=== PATIENT | female | born 1945 | race Native Hawaiian/Other Pacific Islander ===

== ENCOUNTER 2016-08-23 06:28 | Emergency (ER) | payer OTHER ==
[~2016-08-23] VITALS: Ht 162.6 cm; Wt 79.4 kg
[~2016-08-23 06:28] MED LIST: GLIP5TAB65 PO; KRILL OIL300 MG OR; LEVO0.1T6 PO; METO50TA63 PO; PANT40TA PO; PLAVIX75 MG PO; RAMI2.5C2 PO; ROSU10TA PO
[2016-08-23 06:40] VITALS: TEMP 97.8
[2016-08-23 07:24] LABS: PLATELET COUNT 180 K/uL (152-353)
[2016-08-23 07:35] LABS: SODIUM 136 mmol/L (136-145)
[2016-08-23 07:52] LABS: PARTIAL THROMBOPLASTIN TIME 23.6 SECONDS (24.5-33.6)
[2016-08-23 07:56] VITALS: BP 141/84
== END 2016-08-23 07:57 | disposition home or self-care (01) ==
LOC: ED 06:28
DX: K29.60 Other gastritis without bleeding (principal); B96.81 Helicobacter pylori [H. pylori] as the cause of diseases classified elsewhere; E10.9 Type 1 diabetes mellitus without complications; R00.0 Tachycardia, unspecified
CPT/HCPCS: 36415; 80053; 82550; 83036; 84443; 84484; 85027; 85610; 85730; 86318; 93005; 99283

== ENCOUNTER 2017-05-11 11:19 | Outpatient (CLI) | payer OTHER | END 2017-05-11 20:26 | disposition home or self-care (01) | LOC: MAMMO 11:19 | DX: Z12.31 Encounter for screening mammogram for malignant neoplasm of breast (principal) ==

== ENCOUNTER 2017-12-24 08:47 | Outpatient (CLI) | payer OTHER | END 2017-12-24 22:07 | disposition home or self-care (01) | LOC: US 08:47 | DX: Z13.6 Encounter for screening for cardiovascular disorders (principal) ==

== ENCOUNTER 2018-01-28 10:04 | Outpatient (CLI) | payer OTHER | END 2018-01-28 19:22 | disposition home or self-care (01) | LOC: RAD 10:04 | DX: Z13.820 Encounter for screening for osteoporosis (principal); Z78.0 Asymptomatic menopausal state ==

== ENCOUNTER 2018-06-16 03:30 | Emergency (ER) | payer OTHER ==
[~2018-06-16] VITALS: Ht 162.6 cm; Wt 79.4 kg
[2018-06-16 03:57] LABS: PLATELET COUNT 224 K/uL (152-353)
[2018-06-16 04:24] LABS: POTASSIUM 4.3 mmol/L (3.6-5.2); SODIUM 140 mmol/L (136-145)
[2018-06-16 07:15] VITALS: BP 97/52; TEMP 98
== END 2018-06-16 07:19 | disposition home or self-care (01) ==
LOC: ED 03:30
PROVIDERS: Internal Medicine
DX: I48.91 Unspecified atrial fibrillation (principal); J18.9 Pneumonia, unspecified organism; R06.02 Shortness of breath; R00.2 Palpitations
CPT/HCPCS: 36415; 80053; 81000; 82550; 84484; 85027; 85379; 93005; 96365; 96366; 96375; 99285; J0456; J0696; J3490

== ENCOUNTER 2018-06-24 01:10 | Emergency (ER) | payer OTHER ==
[~2018-06-24] VITALS: Ht 162.6 cm; Wt 79.4 kg
[2018-06-24 01:45] LABS: PLATELET COUNT 238 K/uL (152-353)
[2018-06-24 01:55] LABS: POTASSIUM 4.4 mmol/L (3.6-5.2); SODIUM 139 mmol/L (136-145)
[2018-06-24 02:36] VITALS: BP 119/69; TEMP 98.3
== END 2018-06-24 02:30 | disposition home or self-care (01) ==
LOC: ED 01:10
PROVIDERS: Emergency Medicine
DX: R06.03 Acute respiratory distress (principal); I48.91 Unspecified atrial fibrillation
CPT/HCPCS: 36415; 80053; 82550; 82553; 84484; 85027; 93005; 94664; 96374; 99284; J2930

== ENCOUNTER 2018-07-05 11:19 | Outpatient (CLI) | payer OTHER | END 2018-07-05 23:29 | disposition home or self-care (01) | LOC: RAD 11:19 | DX: J18.9 Pneumonia, unspecified organism (principal) ==

== ENCOUNTER 2020-04-19 14:21 | Outpatient (CLI) | payer OTHER | END 2020-04-19 21:41 | disposition home or self-care (01) | LOC: LAB 14:21 | PROVIDERS: ATTEND Internal Medicine | DX: J40 Bronchitis, not specified as acute or chronic (principal); Z11.59 Encounter for screening for other viral diseases | CPT/HCPCS: 87635; G2023; U0003 ==